=== PATIENT | female | born 1965 | race Caucasian/White ===

== ENCOUNTER → 2019-04-06 | Outpatient (CLI) | payer SELFPAY ==
[2019-04-05 10:13] VITALS: BMI 35.6
[2019-04-06 14:18] LABS: Bacteria 0 SEEN /hpf (None Seen); Mucous, Urine 0 SEEN /hpf (<or=2+); Red Blood Cells-Urine 0 SEEN /hpf (0-5); White Blood Cells 0 SEEN /hpf (0-5)
[2019-04-06 14:45] LABS: Color, Urine Yellow (Yellow); Glucose, Dipstick Normal (Normal); Ketone-Dipstick Negative (Negative); Leukocyte Esterase-Dipstick Negative /ul (Negative); Nitrite-Dipstick Negative (Negative); Occult Blood-Urine Negative /ul (Negative); Protein-Dipstick Negative (Negative); Specific Gravity, Urine 1.005 (1.002-1.030); Urine Bilirubin Dipstick Negative (Negative); Urine Clarity Clear (Clear); Urine Urobilinogen Normal (Normal); Urine pH 6.5 (5.0 - 8.0)
[2019-04-06 14:54] LABS: Squamous Epithelial Cells - UA 0-5 SEEN /hpf (5-10)
== END | disposition home or self-care (01) ==
LOC: LABSPEC 14:08
PROVIDERS: Referring Provider Physician Assistant Medical; Visit Provider Physician Assistant Medical
DX: R10.2 Pelvic and perineal pain (principal)
CPT/HCPCS: 81001; 87086; 87088

== ENCOUNTER 2019-11-03 11:45 | Emergency (ER) | payer BC, SELFPAY ==
[2019-04-05 10:13] VITALS: BMI 35.6
[2019-11-03 11:46] VITALS: BP 146/78; PULSE 99; RESP 18; TEMP 36.6; O2SAT 99; BMI 37.2
--- NOTE | 2019-11-03 12:16 | EKG12_ITS ---
Test Reason : CP Blood Pressure : / mmHG Vent. Rate : 100 BPM Atrial Rate : 100 BPM P-R Int : 196 ms QRS Dur : 092 ms QT Int : 350 ms P-R-T Axes : 056 039 018 degrees QTc Int : 451 ms Normal sinus rhythm Normal ECG Confirmed by AIDA MARIN, NEGAR ([id number]), assignment editor SADIE LOPEZ ([id number] on 11/09/2019 2:04:16 PM Referred By: JANEEN/LILI Confirmed By:JOSE PARRA MD
[2019-11-03 12:23] LABS: Mucous, Urine 0 SEEN /hpf (<or=2+); Red Blood Cells-Urine 0 SEEN /hpf (0-5); White Blood Cells 0 SEEN /hpf (0-5)
[2019-11-03] MEDS: Aspirin 81 MG TAB.CHEW 324 MG PO (12:24)
[2019-11-03 12:25] VITALS: O2SAT 96
[2019-11-03 12:25] LABS: Color, Urine Yellow (Yellow); Glucose, Dipstick Normal (Normal); Ketone-Dipstick Negative (Negative); Leukocyte Esterase-Dipstick Negative /ul (Negative); Nitrite-Dipstick Negative (Negative); Occult Blood-Urine Negative /ul (Negative); Protein-Dipstick Negative (Negative); Specific Gravity, Urine 1.005 (1.002-1.030); Urine Bilirubin Dipstick Negative (Negative); Urine Clarity Sl. Cloudy (Clear); Urine Urobilinogen Normal (Normal)
--- NOTE | 2019-11-03 12:25 | ED.DCSUM_ITS ---
History of Present Illness Chief Complaint: Chest Pain Informant: Patient Onset: Today Timing: Intermittent Quality: Pain Location: Left Chest Worsened By: Nothing Relieved By: Nothing Associated Symptoms: Nausea Narrative: Patient is a 54-year-old female presenting after an episode of chest pain. Patient was at work when she suddenly had an episode of chest pain. She states is in the left side of her chest. The episode lasted for about 10 minutes but it was intermittent in nature. She had associated nausea with that and just felt funny. She states that made her feel very anxious and feeling she was having a panic attack. She currently does not have any chest pain. She denies any radiation of the pain. She denies any associated fever. Patient states she is been feeling off for the past 3 to 4 weeks. She states she had intermittent episodes of dizziness and nausea. Her nurse practitioner saw her and started on Zyrtec thinking that she had sinus congestion causing her symptoms. She notes he is also been fatigued. She has a chronic smoker's cough but denies any change in her cough. She denies any shortness of breath. She has a past few months she is had swelling of her left lower leg that is sometimes painful. Her doctor did not seem to be concerned with it. She denies any cyst abdominal pain, vomiting or diarrhea. She denies any urinary symptoms. She states her bowel movements have been normal. She notes for the past 3 to 4-week she is also had a mild backache in her lower back. This is unchanged. She denies any cardiac history. She does have a history of hypertension. She denies any other complaints at this time. CVD Risk Factors: Hypertension, Smoking PE Risk Factors: Negative for: Recent Travel/Surgery, Recenet Immobilization, Prior DVT or PE, Cancer, OCP + Smoking + >/=35 Past Medical History - Allergies and Home Meds Allergies/Adverse Reactions: Allergies No Known Allergies Allergy (Unverified 04/05/19 10:09) tetricycline Allergy (Severe, Uncoded 11/03/19 11:49) yanet Primary Care Physician: Garo Benitez [Primary Care Provider] - Past Medical History: - - Hypertension Surgical History: - - , hysterectomy, oophorectomy, tubal ligation Smoking Status: Current every day smoker Review of Systems General: Reports: Malaise. Denies: Chills, Fever, Sweats Eyes: Denies: Visual changes - bilaterally, Diplopia ENT: Denies: Bilateral ear pain, Rhinorrhea, Sore throat Cardiovascular: Reports: Chest pain. Denies: Palpitations Respiratory: Reports: Cough - Chronic, unchanged. Denies: Dyspnea, Dyspnea on exertion Gastrointestinal: Reports: Nausea. Denies: Abdominal pain, Vomiting, Diarrhea, Melena, Hematochezia Genitourinary: Denies: Dysuria, Hematuria, Frequency Musculoskeletal: Reports: Back pain. Denies: Extremity Pain Skin: Denies: Rash, Wounds Neurological: Denies: Headache, Weakness, Numbness Psych: Reports: Anxiety Physical Exam Vital Signs/Narrative: Vital Signs Temp Pulse Resp BP Pulse Ox 11/03/19 11:46 98 F 99 18 146/78 H 99 Inital Vital Signs reviewed: Yes General: Well nourished, Well developed, No Acute Distress, - - Anxious appearing Head: Normocephalic, Atraumatic Eyes: Perrl, EOMI ENT: Moist mucous membranes, No rhinorrhea, - - Mild erythema but no bulging or loss of light reflex of the right tympanic membrane, left panic membrane is normal. Negative for: Dry mucous membranes, Sinus tenderness Neck: Supple, Nontender Cardiovascular: Regular rate, Regular rhythm, No murmurs Respiratory: No distress, CTA bilaterally, Chest nontender Abdomen: Soft, Nontender, Nondistended, Normal bowel sounds Back: Nontender, Normal Inspection. Negative for: CVA tenderness Extremities: Nontender, No edema Skin: Normal color, No rash Neurological: Alert, Oriented x3, Cranial nerves II-XII grossly intact, Normal Strength, Normal Sensation Psychological: Normal affect, Normal Mood Diagnostic/Tx/Re-eval Chest X-Ray - ED: 2 View, Read by ED Physician, Read by Radiologist, No Acute Disease Clinical Impression(s) from Imaging Studies Chest X-Ray 11/03/19 12:38 IMPRESSION: Mild increased markings in the lingular segment of the left upper lobe suggestive of linear atelectasis and/or scarring. Electronically Signed: Serafin Love, at 13:04 EDT , Service support , Laboratory Data 11/03/19 11/03/19 11/03/19 11:45 11:45 11:45 WBC 12.5 H RBC 5.69 H Hgb 17.2 H Hct 51.2 H MCV 90.0 MCH 30.2 MCHC 33.6 RDW Std Deviation 41.4 RDW Coeff of Asha 12.7 Plt Count 394 MPV 9.6 Immature Gran % (Auto) 0.300 Neut % (Auto) 53.2 Lymph % (Auto) 38.6 [place] % (Auto) 5.8 Eos % (Auto) 1.5 Baso % (Auto) 0.6 Absolute Neuts (auto) 6.6 Absolute Lymphs (auto) 4.82 H Nucleated RBC % 0 D-Dimer Quant (PE/DVT) <= 0.27 Sodium 137 Potassium 3.8 Chloride 104 Carbon Dioxide 27.0 Anion Gap 6 BUN 9 Creatinine 0.80 Estim Creat Clear Calc 73.18 Est GFR (MDRD) Af Amer 96 Est GFR (MDRD) Non-Af 80 BUN/Creatinine Ratio 11.2 Glucose 102 Calcium 9.2 Troponin I < 0.015 TSH 1.40 Urine Color Urine Clarity Urine pH Ur Specific [place] Urine Protein Urine Glucose (UA) Urine Ketones Urine Occult Blood Urine Nitrite Urine Bilirubin Urine Urobilinogen Ur Leukocyte Esterase Urine RBC Urine WBC Ur Squamous Epith Cells Urine Bacteria Urine Mucus 11/03/19 11/03/19 12:15 14:50 WBC RBC Hgb Hct MCV MCH MCHC RDW Std Deviation RDW Coeff of Asha Plt Count MPV Immature Gran % (Auto) Neut % (Auto) Lymph % (Auto) [place] % (Auto) Eos % (Auto) Baso % (Auto) Absolute Neuts (auto) Absolute Lymphs (auto) Nucleated RBC % D-Dimer Quant (PE/DVT) Sodium Potassium Chloride Carbon Dioxide Anion Gap BUN Creatinine Estim Creat Clear Calc Est GFR (MDRD) Af Amer Est GFR (MDRD) Non-Af BUN/Creatinine Ratio Glucose Calcium Troponin I < 0.015 TSH Urine Color Yellow Urine Clarity Sl. Cloudy Urine pH 7.0 Ur Specific [place] 1.005 Urine Protein Negative Urine Glucose (UA) Normal Urine Ketones Negative Urine Occult Blood Negative Urine Nitrite Negative Urine Bilirubin Negative Urine Urobilinogen Normal Ur Leukocyte Esterase Negative Urine RBC 0 SEEN Urine WBC 0 SEEN Ur Squamous Epith Cells 0-5 SEEN Urine Bacteria RARE Urine Mucus 0 SEEN - Rhythm Strip Rhythm Strip: Sinus Rhythm Rate: 100 Ectopy: None - EKG Initial EKG Interpretation: Sinus Rhythm, - - This rhythm at a rate of 100 Normal intervals Normal axis Normal ST segments Follow-up EKG Interpretation: Sinus Rhythm, - - Sinus rhythm with first-degree AV block the MI interval 219 Rate of [address] segment No ST segments changes compared to prior EKG today. TICO Risk: No Positive TICO Elements Score: 0 - Medical Decision Making Patient is evaluated for chest pain. It was one episode of chest pain. She does not currently have chest pain. Patient is low risk per heart score. Delta troponin is negative. EKG does not show any acute changes.chest x-rays not show any acute process to explain her symptoms. She is given a full dose aspirin in the emergency room. She is monitored on telemetry. Work-up is only significant for a white count of 12.5. She is not have any obvious source of infection. As patient is 54 I cannot but otherwise low risk for PE I did check a d-dimer. This is negative. I think patient is stable for outpatient follow-up for further evaluation of this episode of chest pain. She verbalizes agreement understand this plan. She discharged home in stable condition. ED Disposition - Plan for ED Patient: Disposition: Home or Assisted Living Diagnosis: Chest pain of unknown etiology Instructions: ED Chest Pain [facility] Referrals: Garo Benitez [Primary Care Provider] -
[2019-11-03 12:33] LABS: Absolute Lymphocyte Count 4.82 X10^3/uL (0.83-4.51); Absolute Neutrophil Count 6.6 X10^3/uL (2.0-7.7); Basophil# 0.08 X10^3/uL; Basophil% 0.6 % (0-1); Eosinophil# 0.19 X10^3/uL; Eosinophils% 1.5 % (0-5); Hematocrit 51.2 % (37-47); Hemoglobin 17.2 g/dL (12.0-15.0); Lymphocyte # 4.82 X10^3/ul (4.0); Lymphocyte % 38.6 % (19-41); Mean Corp Hgb Conc 33.6 g/dL (32-36); Mean Corpuscular Hgb 30.2 pg (27.0-32.0); Mean Platelet Vol. 9.6 fl (6.2-12.0); Monocyte# 0.73 X10^3/uL; Monocyte% 5.8 % (0-10); NRBC Flagged by Analyzer 0 % (0-5); Neutrophil # 6.62 X10^3/uL (2.7-7.7); Neutrophil % 53.2 % (47-70); Platelet Count 394 K/mm3 (150-450); RBC Distribution Width CV 12.7 % (11.6-14.6); RBC Distribution Width SD 41.4 fl (35.1-43.9); Red Blood Count 5.69 M/mm3 (4.2-5.4); White Blood Count 12.5 K/mm3 (4.4-11.0)
[2019-11-03 12:36] LABS: Bacteria RARE /hpf (None Seen); Squamous Epithelial Cells - UA 0-5 SEEN /hpf (5-10)
--- NOTE | 2019-11-03 12:38 | RAD_ITS ---
STUDY: X-RAY CHEST REASON FOR EXAM: Female, 54 years old. CHEST PAIN, HYPERTENSION TECHNIQUE: PA and lateral views of the chest. COMPARISON: None. FINDINGS: EKG electrodes are seen. Minimal increased linear markings in the lingular segment of the left upper lobe. This may represent either an early infiltrate or possible scarring. There is no demonstrated pleural abnormality. Normal size heart. Normal mediastinum and brendon. Normal visualized pulmonary arteries. There is atherosclerotic tortuosity of the aortic arch and descending thoracic aorta. There is demineralization of the osseous structures. Normal visualized ribs, clavicles, and shoulders. There is no demonstrated abnormality of the visualized soft tissue structures of the upper abdomen. RAD/Chest PA and Lateral IMPRESSION: Mild increased markings in the lingular segment of the left upper lobe suggestive of linear atelectasis and/or scarring. Electronically Signed: Serafin Love, at 13:04 EDT , Service support ,
[2019-11-03 12:46] LABS: Anion Gap 6 (5-15); BUN 9 mg/dL (7-18); BUN/Creat Ratio 11.2 RATIO (10-20); Calcium,Total 9.2 mg/dL (8.5-10.1); Chloride 104 mmol/L (98-107); EST Glomerular Filtration Rate 80 mL/min (>60); Est Glom Filt Rate - Afr Amer 96 mL/min (>60); Estimated Creatinine Clearance 73.18 ml/min; Glucose 102 mg/dL (74-106); Potassium 3.8 mmol/L (3.5-5.1); Sodium Level 137 mmol/L (136-145)
[2019-11-03 12:51] LABS: D-Dimer Quantitative (DVT/PE) <= 0.27 FEU/ug/m (0.27-0.49)
[2019-11-03 14:45] VITALS: BP 125/78; PULSE 90; RESP 18; O2SAT 99
--- NOTE | 2019-11-03 14:45 | EKG12_ITS ---
Test Reason : REPEAT Blood Pressure : / mmHG Vent. Rate : 091 BPM Atrial Rate : 091 BPM P-R Int : 210 ms QRS Dur : 086 ms QT Int : 374 ms P-R-T Axes : 053 035 018 degrees QTc Int : 460 ms Sinus rhythm with 1st degree A-V block Otherwise normal ECG Confirmed by AIDA MARIN, NEGAR ([id number]), loan expeditor SADIE LOPEZ ([id number] on 11/09/2019 2:04:28 PM Referred By: KATHY Confirmed By:JOSE PARRA MD
[2019-11-03 16:04] VITALS: BP 136/94; PULSE 93; RESP 18; O2SAT 96
== END 2019-11-03 16:07 | disposition home or self-care (01) ==
PROVIDERS: Emergency Provider Emergency Medicine; PCP Family Medicine
DX: R07.89 Other chest pain (principal); R11.0 Nausea; R42 Dizziness and giddiness; R53.83 Other fatigue; I44.0 Atrioventricular block, first degree; J41.0 Simple chronic bronchitis; I10 Essential (primary) hypertension; Z79.899 Other long term (current) drug therapy; F17.200 Nicotine dependence, unspecified, uncomplicated
CPT/HCPCS: 71046; 80048; 81001; 84443; 84484; 85025; 85379; 93005; 99284; A4216